=== PATIENT | female | born 1965 | race Hispanic/Latino ===

== ENCOUNTER 2017-05-27 08:00 | Outpatient (CLI) | payer MEDICARE, MEDICAID | END 2017-05-27 08:01 | disposition home or self-care (01) | LOC: BICMRI 08:00 | PROVIDERS: ATTEND Student in an Organized Health Care Education/Training Program | DX: R51 Headache (principal); R20.2 Paresthesia of skin; R47.9 Unspecified speech disturbances; M54.2 Cervicalgia; M47.892 Other spondylosis, cervical region; M50.222 Other cervical disc displacement at C5-C6 level | CPT/HCPCS: 70551; 72141 ==

== ENCOUNTER 2017-09-16 14:55 | Outpatient (CLI) | payer MEDICARE, MEDICAID | END 2017-09-16 14:56 | disposition home or self-care (01) | LOC: BICMRI 14:55 | PROVIDERS: ATTEND Specialist | DX: M51.16 Intervertebral disc disorders with radiculopathy, lumbar region (principal); M47.26 Other spondylosis with radiculopathy, lumbar region; M47.27 Other spondylosis with radiculopathy, lumbosacral region; M48.061 Spinal stenosis, lumbar region without neurogenic claudication | CPT/HCPCS: 72148 ==

== ENCOUNTER 2021-01-25 12:30 | Outpatient (CLI) | payer MEDICARE, MEDICAID | END 2021-01-25 12:31 | disposition home or self-care (01) | LOC: BICMAMMO 12:30 | DX: Z12.31 Encounter for screening mammogram for malignant neoplasm of breast (principal) | CPT/HCPCS: 77063; 77067 ==

== ENCOUNTER 2024-04-06 23:51 | Emergency (ER) | payer OTHER | END 2024-04-07 17:24 | disposition left against medical advice (07) | LOC: ERS 23:51 | DX: Z53.21 Procedure and treatment not carried out due to patient leaving prior to being seen by health care provider (principal) ==